=== PATIENT | female | born 2005 | race Caucasian/White ===

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

== ENCOUNTER → 2025-05-08 | Outpatient (CLI) | payer BC ==
[2025-05-08 14:39] LABS: ALT/SGPT 23 U/L (7.0-40); AST/SGOT 24 U/L (<34); CHOLESTEROL LEVEL 191 MG/DL (<200); TRIGLYCERIDES LEVEL 135 MG/DL (<150)
== END ==
LOC: M PLALAB 10:25
PROVIDERS: ATTEND Nurse Practitioner Family
DX: L70.0 Acne vulgaris (principal)

== ENCOUNTER → 2025-06-05 | Outpatient (CLI) | payer BC ==
[2025-06-05 14:51] LABS: ALT/SGPT 18 U/L (7.0-40); AST/SGOT 27 U/L (<34); CHOLESTEROL LEVEL 165 MG/DL (<200); HCG, SERUM QUALITATIVE NEGATIVE (NEGATIVE); TRIGLYCERIDES LEVEL 86 MG/DL (<150)
== END ==
LOC: M PLALAB 10:58
PROVIDERS: ATTEND Nurse Practitioner Family
DX: Z51.81 Encounter for therapeutic drug level monitoring (principal); L70.0 Acne vulgaris; Z79.899 Other long term (current) drug therapy